=== PATIENT | male | born 2005 | race Two or more races ===

== ENCOUNTER 2024-02-21 21:47 | Emergency (ER) | payer MEDICAID, OTHER ==
[~2024-02-21] VITALS: Ht 175.3 cm; Wt 86.2 kg
[2024-02-21] MEDS ORDERED: CT SWABBABLE VALVE TRANS SET 1 EA INFUS.SET MC ONE (22:30)
[2024-02-21] MEDS ORDERED: IOHEXOL-300 100 ML VIAL IV ONE (22:30)
[2024-02-21] MEDS ORDERED: IV NS 0.9% 250 ML IV ONE (22:31)
[2024-02-21 22:48] LABS: BASOPHILS # (AUTO) 0.1 K/uL (0.0-0.2); BASOPHILS % (AUTO) 0.2 % (0.0-2.0); HEMATOCRIT 39 % (39-51); LYMPHOCYTES # (AUTO) 0.4 K/uL (0.8-4.8); LYMPHOCYTES % (AUTO) 1.5 % (20.0-44.0); MEAN CORPUSCULAR HEMOGLOBIN 30 PG (26.0-33.0); MEAN CORPUSCULAR HGB CONC 34 g/dl (31.0-36.0); MEAN CORPUSCULAR VOLUME 90 fL (80-96); MONOCYTES # (AUTO) 1.8 K/uL (0.1-1.30); MONOCYTES % (AUTO) 6.1 % (2.0-12.0); NEUTROPHILS # (AUTO) 26.9 K/uL (1.8-8.9); NEUTROPHILS % (AUTO) 92.2 % (43.0-81.0); PLATELET COUNT (AUTO) 225 K/uL (150-450); RED CELL DISTRIBUTION WIDTH 12.6 % (11.5-15.0); WHITE BLOOD COUNT (AUTO) 29.2 K/uL (4.3-11.0)
[2024-02-21 22:58] LABS: INR 1.14 (0.91-1.10)
[2024-02-21 23:13] LABS: CALCIUM, SERUM 8.7 mg/dL (8.5-10.1); CREATININE 1.2 mg/dL (0.6-1.3); POTASSIUM 4.5 mmol/L (3.5-5.1)
[2024-02-21 23:21] LABS: ALBUMIN 3.9 g/dL (3.4-5.0); BILIRUBIN,TOTAL 0.7 mg/dL (0.2-1.0); TOTAL PROTEIN, SERUM 7.4 g/dL (6.4-8.2)
[2024-02-21] MEDS: IV NS 0.9% 1,000 ML IV ONE (23:44)
[2024-02-22] MEDS ORDERED: TRANEXAMIC ACID 1,000 MG/10 ML VIAL ONE (08:28)
[2024-02-22] MEDS ORDERED: MORPHINE SULFATE INJ 4 MG/ML DISP.SYRIN ONE (08:50)
[2024-02-22] MEDS ORDERED: ONDANSETRON HCL/PF 4 MG/2 ML VIAL ONE (08:50)
[2024-02-22] MEDS: ONDANSETRON HCL/PF - ER 4 MG/2 ML VIAL IV ONE (08:52)
[2024-02-22] MEDS: MORPHINE SULFATE INJ 2 MG/ML DISP.SYRIN IV ONE (08:53)
[2024-02-22] MEDS: TRANEXAMIC ACID 1,000 MG/10 ML VIAL IR ONE (08:54)
[2024-02-22] MEDS: DDAVP 20 MCG in IV NS 50 ML IV ONE (08:54)
[2024-02-22 09:00] LABS: HEMOGLOBIN 11.8 g/dL (13.5-17.5)
[2024-02-22] MEDS ORDERED: SENN1TAB33 PO (09:39)
[2024-02-22 12:27] VITALS: BP 135/68; TEMP 98.1; O2SAT 99
== END 2024-02-22 12:27 | disposition home or self-care (01) ==
LOC: ER 21:50
DX: J95.830 Postprocedural hemorrhage of a respiratory system organ or structure following a respiratory system procedure (principal); R04.0 Epistaxis; Z90.89 Acquired absence of other organs
CPT/HCPCS: 99285; 96361; 85025; 85610; 36415 ×2; 80053; 86850; 96365; 96375; 30901; 85027; J7030; J7050; Q9967; J2597; J2270; J2405 ×2; A4217; A4223